=== PATIENT | female | born 1950 | race Caucasian/White ===

== ENCOUNTER 2019-10-13 05:48 | Day surgery (SDC) | payer MEDICARE, OTHER ==
[~2019-10-13] VITALS: Ht 167.6 cm; Wt 83.0 kg
[2019-10-13 06:36] VITALS: BP 168/87
[2019-10-13] MEDS ORDERED: SODIUM CHLORIDE 0.9% 1,000 ML IV SCH (07:00)
[2019-10-13 08:14] LABS: INTERNATIONAL NORMALIZED RATIO 0.95 (0.93-1.1); PROTHROMBIN TIME 10.1 Seconds (9.6-11.5)
[2019-10-13] MEDS ORDERED: FENTANYL PF 100 MCG/2ML ONE (08:22)
[2019-10-13] MEDS ORDERED: NALOXONE 1 MG/ML, 2ML ONE (08:22)
[2019-10-13] MEDS ORDERED: FLUMAZENIL 0.1 MG/1 ML, 5ML ONE (08:22)
[2019-10-13] MEDS ORDERED: MIDAZOLAM 1 MG/ML, 5ML ONE ×2 (08:22)
== END 2019-10-13 10:30 | disposition home or self-care (01) ==
LOC: OUT 05:48
PROVIDERS: ATTEND Internal Medicine Nephrology
DX: I12.0 Hypertensive chronic kidney disease with stage 5 chronic kidney disease or end stage renal disease (principal); E11.22 Type 2 diabetes mellitus with diabetic chronic kidney disease; N18.5 Chronic kidney disease, stage 5; E78.5 Hyperlipidemia, unspecified; M19.90 Unspecified osteoarthritis, unspecified site; Z90.49 Acquired absence of other specified parts of digestive tract; Z96.651 Presence of right artificial knee joint; Z79.899 Other long term (current) drug therapy; Z72.89 Other problems related to lifestyle; Z98.890 Other specified postprocedural states; Z80.0 Family history of malignant neoplasm of digestive organs
CPT/HCPCS: 36415; 50200; 77012; 85610; 88300; 99156; 99157; J2250; J3010; J7030; 88305; 88313; 88346; 88348; 88350; J2310